=== PATIENT | male | born 1960 | race Caucasian/White ===

== ENCOUNTER 2020-10-02 07:04 | Outpatient (CLI) | payer BC, SELFPAY ==
--- NOTE | 2020-10-02 07:15 | XR_ITS ---
WS: [id number] KUB, AP view, 10/02/2020 Clinical Data: URETERAL STONE Comparison: KUB, 10/02/2018. Findings: No abnormal intraabdominal masses or calcifications are seen. There is no dilatated small bowel or ev idence of obstruction. 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 There is a posterior lumbar fusio n at L5-S1. There is moderate fecal material throughout the colon. There are phleboliths in the true pelvis. XR/XR KUB [id number] Impression: Negative KUB.
== END 2020-10-02 07:05 | disposition home or self-care (01) ==
LOC: RAD 07:07
PROVIDERS: PCP Family Medicine; Visit Provider Urology
DX: N20.1 Calculus of ureter (principal)
CPT/HCPCS: 74018; 81003

== ENCOUNTER → 2022-01-12 08:50 | Outpatient (BNVA) | payer BC, SELFPAY | PROVIDERS: PCP Family Medicine; Visit Provider Family Medicine | DX: Z00.00 Encounter for general adult medical examination without abnormal findings (principal) | CPT/HCPCS: 80053; 80061 ==

== ENCOUNTER 2023-02-03 08:25 | Outpatient (CLI) | payer BC, SELFPAY ==
[2023-02-03 09:19] LABS: Chol HDL Ratio 3.13 mg/dL (1.0-5.00); Cholesterol 166 mg/dL (0-200); HDL Cholesterol 53 mg/dL (60-100); LDL Cholesterol Calculated 92 mg/dL (50-129); LDL HDL Ratio 1.74 RATIO (0.00-3.22); Triglycerides 104 mg/dL (0-150)
== END 2023-02-03 08:26 | disposition home or self-care (01) ==
LOC: LAB 08:27
PROVIDERS: PCP Family Medicine; Visit Provider Internal Medicine
DX: E78.5 Hyperlipidemia, unspecified (principal)
CPT/HCPCS: 36415; 80061

== ENCOUNTER 2023-02-10 06:18 | Outpatient (CLI) | payer BC, SELFPAY ==
--- NOTE | 2023-02-10 06:30 | USCV_ITS ---
Laz Dodd Age: 62 Gender: M : 1960 Exam Date: 02/10/2023 06:27 Ordering Phys: Garfield Salazar M.D ([email or web address]) Technologist: Exam Location: [facility] [place] Indication: chest pain BP: 140 / 90 HR: 44 Rhythm: Sinus Technical Quality: Adequate MEASUREMENTS (Male / Female) Normal Values 2D ECHO LVOT Diameter 2.0 cm LV Ejection Fraction MOD 2C 67.8 % LV Ejection Fraction 2C AL 68.3 % LA Diameter 3.1 cm M-MODE MV E Point Septal Separation 0.9 cm DOPPLER AV Peak Velocity 118.0 cm/s LVOT Peak Velocity 118.0 cm/s AV Area Cont Eq vti 3.3 cm squared AV Area Cont Eq pk 3.2 cm squared MV Area PHT 4.5 cm squared Mitral E to A Ratio 1.5 MV E' Velocity 63.5 cm/s Mitral E to MV E' Ratio 17.1 Mitral E to LV E' Lateral Ratio 16.4 Mitral E to LV E' Septal Ratio 18.2 TR Peak Velocity 209.7 cm/s TR Peak Gradient 17.6 mmHg TV Peak E Velocity 152.0 cm/s Right Atrial Pressure 3.0 mmHg Pulmonary Artery Systolic Pressu 20.6 mmHg FINDINGS Left Ventricle Left ventricle is normal size. LV systolic function is normal with EF of 60 to 65%. No regional wall motion abnormalities are seen. Right Ventricle Normal in size and function Right Atrium Normal in size Left Atrium Normal in size Mitral Valve structurally normal mitral valve. Mild mitral regurgitation Aortic Valve Aortic valve is thickened. No significant aortic stenosis. Mild aortic regurgitation Tricuspid Valve Trace tricuspid regurgitation. Insufficient TR jet to evaluate RVSP. Pulmonic Valve Mild pulmonic regurgitation Pericardium Normal Aorta Normal in size IVC Appears to be normal CONCLUSIONS LV systolic function is normal with EF of 60 to 65%. Mild mitral regurgitation Mild aortic regurgitation Trace tricuspid regurgitation Mild pulmonic regurgitation Compared to prior echocardiogram from 2018, patient now has mild aortic regurgitation. Garfield Salazar MD (Electronically Signed) Final Date: 10 February 2023 10:54 S
== END 2023-02-10 06:19 | disposition home or self-care (01) ==
LOC: RAD 06:18
PROVIDERS: PCP Family Medicine; Visit Provider Internal Medicine
DX: R01.1 Cardiac murmur, unspecified (principal); I08.8 Other rheumatic multiple valve diseases
CPT/HCPCS: 93306